=== PATIENT | male | born 1980 | race Hispanic/Latino ===

== ENCOUNTER 2020-12-01 12:37 | Emergency (ER) | payer SELFPAY ==
[~2020-12-01 12:37] MED LIST: LINE600T11 PO; POST OP SHOE
[2020-12-01 12:58] LABS: BASOPHILS % (AUTO) 0.4 % (0.0-5.0); EOSINOPHILS % (AUTO) 1.4 % (0.0-8.0); HEMATOCRIT 44.8 % (42-54); LYMPHOCYTES % (AUTO) 31.2 % (21.0-51.0); MEAN CORPUSCULAR HEMOGLOBIN 32.6 pg (27.0-33.0); MEAN CORPUSCULAR HGB CONC 35.9 g/dL (32.0-36.0); MEAN CORPUSCULAR VOLUME 90.7 fL (79-99); MONOCYTES % (AUTO) 6.1 % (3.0-13.0); NEUTROPHILS % (AUTO) 60.5 % (40.0-77.0); PLATELET COUNT (AUTO) 274 K/uL (130-400); RED BLOOD CELL COUNT(AUTO) 4.94 MIL/uL (4.50-6.20); RED CELL DISTRIBUTION WIDTH 11.6 % (11.0-15.5); WHITE BLOOD COUNT (AUTO) 10.2 K/uL (4.8-10.8)
[2020-12-01 13:06] LABS: CREATININE 0.9 mg/dL (0.5-1.5); POTASSIUM 3.8 mmol/L (3.5-5.1)
[2020-12-01 13:08] LABS: INR 0.98 (0.85-1.15); PROTHROMBIN TIME 10.5 SEC (9.6-11.6)
[2020-12-01 13:10] LABS: APPEARANCE,URINE Clear (CLEAR); BILIRUBIN,URINE Negative (NEGATIVE); COLOR,URINE Yellow (YELLOW); GLUCOSE, URINE (UA) Negative (NEGATIVE); KETONES,URINE Negative (NEGATIVE); LEUKOCYTE ESTERASE ,URINE Negative (NEGATIVE); NITRATE,URINE Negative (NEGATIVE); OCCULT BLOOD,URINE Trace (NEGATIVE); PH,URINE 7.5 (5.0-8.0); PROTEIN,URINE Negative (NEGATIVE); UROBILINOGEN,URINE 0.2 mg/dL (0.2-1.0)
[2020-12-01 13:10] LABS: ALBUMIN 3.9 g/dL (3.5-5.0); BILIRUBIN,TOTAL 0.4 mg/dL (0.2-1.0); PARTIAL THROMBOPLASTIN TIME 26.4 SEC (26.3-35.5); TOTAL PROTEIN, SERUM 7.8 g/dL (6.0-8.3)
[2020-12-01 13:34] LABS: BACTERIA,URINE None Seen /HPF (None Seen); RBC,URINE 0-1 /HPF (0-1); SQUAMOUS EPITHELIAL CELL,UR 0-2 /HPF (0-2); WBC,URINE None Seen /HPF (0-1)
[2020-12-01 13:35] LABS: B-TYPE NATRIURETIC PEPTIDE < 5 pg/mL (0-100)
== END 2020-12-01 14:17 | disposition home or self-care (01) ==
LOC: EDH 12:37
DX: R07.89 Other chest pain (principal)
CPT/HCPCS: 36415; 71045; 80053; 81001; 82550; 83880; 84484; 85025; 85610; 85730; 93005

== ENCOUNTER 2021-06-03 06:59 | Emergency (ER) | payer SELFPAY ==
[~2021-06-03] VITALS: Ht 175.3 cm; Wt 84.8 kg
[2021-06-03] MEDS ORDERED: LIDOCAINE HCL 2% VISCOUS 15 ML UDCUP PO ONE (07:30)
[2021-06-03 08:08] VITALS: BP 135/72
== END 2021-06-03 08:26 | disposition home or self-care (01) ==
LOC: EDH 06:59
DX: R09.89 Other specified symptoms and signs involving the circulatory and respiratory systems (principal); R06.02 Shortness of breath; Z79.899 Other long term (current) drug therapy
CPT/HCPCS: 70360

== ENCOUNTER 2023-07-02 11:55 | Emergency (ER) | payer OTHER ==
[~2023-07-02] VITALS: Ht 175.3 cm; Wt 86.2 kg
[2023-07-02 12:19] LABS: APPEARANCE,URINE CLEAR (CLEAR); BILIRUBIN,URINE NEGATIVE (NEGATIVE); COLOR,URINE YELLOW (YELLOW); GLUCOSE, URINE (UA) NEGATIVE (NEGATIVE); KETONES,URINE NEGATIVE (NEGATIVE); LEUKOCYTE ESTERASE ,URINE NEGATIVE Leu/uL (NEGATIVE); NITRATE,URINE NEGATIVE (NEGATIVE); PROTEIN,URINE 20 mg/dL (NEGATIVE); UROBILINOGEN,URINE 0.2 mg/dL (0.2-1.0)
[2023-07-02 12:23] LABS: ADD UA MICROSCOPIC YES
[2023-07-02 12:24] LABS: MUCUS,URINE RARE LPF (None Seen); WBC,URINE 0-1 /HPF (0-1)
[2023-07-02 12:25] LABS: BASOPHILS # (AUTO) 0.03 K/uL (0.00-0.20); BASOPHILS % (AUTO) 0.3 % (0.0-5.0); EOSINOPHILS # (AUTO) 0.15 K/uL (0.00-0.70); EOSINOPHILS % (AUTO) 1.6 % (0.0-8.0); HEMATOCRIT 39.1 % (42-54); IMMATURE GRANULOCYTE ABSOLUTE 0.02 K/uL (0-1); MEAN CORPUSCULAR HEMOGLOBIN 33.1 pg (27.0-33.0); MEAN CORPUSCULAR HGB CONC 36.1 g/dL (32.0-36.0); MEAN CORPUSCULAR VOLUME 91.8 fL (79-99); MONOCYTES # (AUTO) 0.7 K/uL (0.1-1.0); MONOCYTES % (AUTO) 7.6 % (3.0-13.0); NEUTROPHILS # (AUTO) 5.3 K/uL (1.8-7.7); NEUTROPHILS % (AUTO) 57.3 % (40.0-77.0); PLATELET COUNT (AUTO) 265 K/uL (130-400); RED BLOOD CELL COUNT(AUTO) 4.26 MIL/uL (4.50-6.20); WHITE BLOOD COUNT (AUTO) 9.2 K/uL (4.8-10.8)
[2023-07-02 12:30] LABS: SARS-CoV-2, RNA, NAAT NEGATIVE SARS CoV-2 (NEGATIVE)
[2023-07-02 12:34] LABS: INFLUENZA TYPE A Negative For Type A (NEGATIVE); INFLUENZA TYPE B Negative For Type B (NEGATIVE)
[2023-07-02 12:41] LABS: POTASSIUM 3.5 mmol/L (3.5-5.1)
[2023-07-02 12:44] LABS: AMPHET/METH SCREEN,URINE NEGATIVE (NEGATIVE); BARBITURATE SCREEN, URINE NEGATIVE (NEGATIVE); BENZODIAZEPINES SCREEN,URINE NEGATIVE (NEGATIVE); CANNABINOID SCREEN,URINE NEGATIVE (NEGATIVE); COCAINE SCREEN,URINE NEGATIVE (NEGATIVE); OPIATE SCREEN,URINE NEGATIVE (NEGATIVE); PHENCYCLIDINE SCREEN,URINE NEGATIVE (NEGATIVE)
[2023-07-02 12:45] LABS: ALBUMIN 3.5 g/dL (3.5-5.0); BILIRUBIN,TOTAL 0.4 mg/dL (0.2-1.0)
[2023-07-02] MEDS ORDERED: IOHEXOL-350 75 ML VIAL IV ONE (13:57)
[2023-07-02] MEDS ORDERED: IBUP-2070 PO (17:21)
[2023-07-02 17:54] VITALS: BP 124/76; PULSE 58; RESP 12; O2SAT 99
== END 2023-07-02 17:55 | disposition home or self-care (01) ==
LOC: EDH 11:55
DX: R10.30 Lower abdominal pain, unspecified (principal); R94.31 Abnormal electrocardiogram [ECG] [EKG]; Z20.822 Contact with and (suspected) exposure to COVID-19; Z79.899 Other long term (current) drug therapy
CPT/HCPCS: 99285; 93306; 74177; 71045; 87635; 83735; 84484; 80053; 80305; 83690; 85025; 85651; 87804 ×2; 83605; 36415; 93356; 93005; 81001; C9803; Q9967